=== PATIENT | female | born 1970 | race Two or more races ===

== ENCOUNTER → 2024-08-21 | Outpatient (CLI) | payer MEDICAID, SELFPAY ==
[2024-08-17 13:50] LABS: HCG Qualitative,Urine Negative
--- NOTE | 2024-08-21 09:00 | XR_ITS ---
Examination: CT chest with intravenous contrast CT abdomen with intravenous contrast CT pelvis with intravenous contrast 2-D coronal and sagittal reconstructions Time of exam: August 21, 2024 0925 hours INDICATIONS: Diagnosis malignant neoplasm kidney post nephrectomy 2 years ago CTDI: vol (mGy) : 29.4 DLP: (mGycm): 1356 Technique: Multiple axial images of the chest, abdomen and pelvis with intravenous contrast, 3.0 mm slice thickness. Images obtained post intravenous injection Isovue 30 cc Isovue-300 2-D sagittal and coronal reconstructions. Low dose protocols were performed. One or more of the following dose reduction techniques were used; automated exposure control, adjustment of the mA and/or KV according to patient size, use of iterative reconstruction technique. Findings: No thoracic aortic aneurysm dilatation Pulmonary artery segments are not enlarged No paratracheal tracheobronchial or bronchopulmonary adenopathy No pneumonia, pulmonary edema, pleural disease or pulmonary nodules No interval liver lesions No gallstones Spleen not enlarged No pancreatic mass Absent right kidney No left renal tumor mass noted No interval abdominal or pelvic lymphadenopathy Normal appendix Bladder intact Osseous structures demineralized IMPRESSION: No interval metastatic disease
== END | disposition home or self-care (01) ==
LOC: COPL 08:12
PROVIDERS: Referring Provider Urology; Visit Provider Urology
DX: C64.9 Malignant neoplasm of unspecified kidney, except renal pelvis (principal); Z32.00 Encounter for pregnancy test, result unknown
CPT/HCPCS: 71270; 74178; 81025; A4649; Q9967

== ENCOUNTER → 2025-03-14 | Outpatient (CLI) | payer MEDICAID, SELFPAY ==
[2025-03-13 14:29] LABS: HCG Qualitative,Urine Negative
--- NOTE | 2025-03-14 10:00 | XR_ITS ---
Examination: CT abdomen with intravenous contrast CT pelvis with intravenous contrast 2-D coronal reconstructions 2-D sagittal reconstructions Date and time of exam:March 14, [address] chest abdomen pelvis August 21, 2024 INDICATIONS: Diagnosis renal cell carcinoma 2 years ago post surgery, restaging. CTDI: vol (mGy) 8.32 DLP: (mGycm) 106 Technique: Multiple axial sections of the abdomen and pelvis have been obtained. 64 slice high-resolution scanner used. 3 mm axial sections have been obtained, post intravenous injection 30 cc Isovue-300 2-D sagittal, coronal reconstructions obtained. Low dose protocols were performed. One or more of the following dose reduction techniques were used; automated exposure control, adjustment of the mA and/or KV according to patient size, use of iterative reconstruction technique. Findings: No focal liver or splenic lesions No gallstones No pancreatic or adrenal mass Absent right kidney No soft tissue mass in the right renal fossa Stable 2 to 3 mm periaortic lymph nodes No bowel obstruction No diverticulitis Anteverted uterus No bladder mass or bladder calculi Osseous structures intact IMPRESSION: No interval metastatic disease or recurrent tumor
== END | disposition home or self-care (01) ==
PROVIDERS: PCP Nurse Practitioner Family; Referring Provider Urology; Visit Provider Urology
DX: N28.89 Other specified disorders of kidney and ureter (principal); Z32.00 Encounter for pregnancy test, result unknown
CPT/HCPCS: 74177; 81025; A4649; Q9967

== ENCOUNTER 2025-05-27 16:39 | Emergency (ER) | payer MEDICAID, SELFPAY ==
[2025-05-27 16:40] VITALS: BP 158/92; PULSE 71; RESP 17; TEMP 36.8; O2SAT 98; BMI 23.9
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
[2025-05-27 17:20] VITALS: PULSE 92; RESP 20; O2SAT 98
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
[2025-05-27 18:17] LABS: Collection Type, Urine Clean Catch
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
[2025-05-27 18:32] LABS: HCG Qualitative,Urine Negative
[2025-05-27 18:37] LABS: Bacteria,Urine Rare; Bilirubin,Urine Negative (Negative); Blood,Urine Negative (Negative); Clarity,Urine Clear (Clear/Hazy); Color,Urine Colorless (Lt Yel-Yel); Culture Indicated,Urine Not Indicated; Glucose, Urine Negative (Negative); Ketones,Urine Negative (Negative); Leukocyte Esterase,Urine Positive (Negative); Nitrite,Urine Negative (Negative); PH,Urine 6.0 (5.0-7.0); Protein,Urine Negative (Neg - Trace); RBC,Urine 1 /hpf (0-3); Specific Gravity,Urine 1.011 (1.001-1.035); Squamous Epithelial Cell,Urine 1 /hpf (0-5); Urobilinogen,Urine Negative mg/dL (0.0-1.0); WBC,Urine 2 /hpf (0-5)
[2025-05-27] MEDS: HYDROcodone/APAP 5/325 TABLET 1 TAB PO (19:28)
--- NOTE | 2025-05-27 21:10 | PC.NURSE ---
CALLED TO DC AND NO ANSWER AT THIS TIME
--- NOTE | 2025-05-27 21:31 | PC.NURSE ---
PT WAS CALLED THREE TIMES FOR DISCHARGE NO ANSWER. PT ELOPED THE ER BEFORE D/C PAPERS WERE GIVEN.
== END 2025-05-27 21:32 | disposition home or self-care (01) ==
PROVIDERS: Emergency Medicine; Emergency Provider Emergency Medicine; PCP Nurse Practitioner Family
DX: Z04.1 Encounter for examination and observation following transport accident (principal)
CPT/HCPCS: 70450; 71250; 72125; 74176; 81001; 81025; 99283; A9270